=== PATIENT | male | born 1955 | race Caucasian/White ===

== ENCOUNTER 2018-11-27 23:39 | Observation (INO) | payer BC ==
[2018-11-28 00:47] LABS: BUN/Creatinine Ratio 21; Blood Urea Nitrogen 15 mg/dL (9-20); Calcium 9.7 mg/dL (8.4-10.2); Hemolysis Index 204
[2018-11-28 01:11] LABS: Hematocrit 44.3 % (35.5-45.6); Hemoglobin 14.9 gm/dl (11.8-15.2); Mean Corpuscular HGB Conc 34 % (32-34); Mean Corpuscular Volume 73 fl (84-94); Platelet Count 123 K/mm3 (140-440); Red Blood Count 6.08 M/mm3 (3.65-5.03)
[2018-11-28 01:19] LABS: INR 1.2 (0.87-1.13)
[2018-11-28 01:24] LABS: Red Cell Distribution Width 21.8 % (13.2-15.2)
--- NOTE | 2018-11-28 01:27 | Emergency Department Report ---
HPI - General Chief Complaint: Altered Mental Status Time Seen by Provider: 11/28/18 00:33 - HPI HPI: Room 18 The patient is a 63-year-old male presenting with a chief complaint of altered mental status. Family states they're visiting from out of town the patient was behaving his normal self until approximately 21:00 when he began mumbling and zoning out. states the patient has behaved in a similar fashion but worse in the past when his ammonia level was elevated. The patient did not take his lactulose earlier today but was able to take it after his symptoms began. states the patient had a smoothie to eat earlier today as well as a cough so. Patient is slow to respond but denies pain or shortness of breath. 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 - Surgical History Past Surgical History?: Yes Additional Surgical History: hand - Family History Family history: no significant - Social History Smoking Status: Former Smoker (remote) Substance Use Type: None (denies illicit drug use), Alcohol (no alcohol times one year) ED Review of Systems ROS: Stated complaint: SYMPTOMS OF TO AMONIA Other details as noted in HPI Comment: Unobtainable due to pts medical conditions Physical Exam - Physical Exam Vital Signs: Vital Signs 11/27/18 11/28/18 23:45 01:00 Temperature 98.6 F Pulse Rate 73 87 Respiratory 18 Rate Blood Pressure 127/70 140/80 O2 Sat by Pulse 97 97 Oximetry Physical Exam: GENERAL: The patient is well-developed well-nourished male lying on stretcher not appearing to be in acute distress. [] HEENT: Normocephalic. Atraumatic. Extraocular motions are intact. NECK: Supple. Trachea midline CHEST/LUNGS: Clear to auscultation. There is no respiratory distress noted. HEART/CARDIOVASCULAR: Regular. There is no tachycardia. There is no gallop rub or murmur. ABDOMEN: Abdomen is soft, nontender. Patient has normal bowel sounds. There is no abdominal distention. SKIN: There is no rash. There is no edema. There is no diaphoresis. NEURO: The patient is awake but slow to respond. Patient only says last name when asked his full name. Patient does not respond when he is asked if he knows where he is. The patient is not cooperative with cranial nerve exam. The patient appears to have difficulty raising his right arm and flexing his right lower extremity at the knee and hip when compared to the left. The patient has soft and occasionally mumbling speech MUSCULOSKELETAL: There is no evidence of acute injury. ED Course Vital Signs 11/27/18 11/28/18 23:45 01:00 Temperature 98.6 F Pulse Rate 73 87 Respiratory 18 Rate Blood Pressure 127/70 140/80 O2 Sat by Pulse 97 97 Oximetry - Consultations Consultation #1: 11/28/18 01:24 Code stroke called 11/28/18 02:00 Case discussed with tele-neurologist- recommends trial of Ativan 1 mg IV. Okay to administer aspirin and admitted to the hospital for further evaluation/EEG ED Medical Decision Making - Lab Data Result diagrams: 11/28/18 00:36 11/28/18 00:11 Laboratory Results - last 24 hr 11/28/18 11/28/18 11/28/18 00:09 00:11 00:36 WBC 10.4 RBC 6.08 H Hgb 14.9 Hct 44.3 MCV 73 L MCH 25 L MCHC 34 RDW 21.8 H Plt Count 123 L Lymph % (Auto) Construction Accountant [place] % (Auto) Construction Accountant Eos % (Auto) Construction Accountant Baso % (Auto) Construction Accountant Lymph # Construction Accountant [place] # Construction Accountant Eos # Construction Accountant Baso # Construction Accountant Seg Neutrophils % Construction Accountant Seg Neutrophils # Construction Accountant PT INR APTT Sodium 132 L Potassium 5.0 Chloride 95.7 L Carbon Dioxide 20 L Anion Gap 21 BUN 15 Creatinine 0.7 L Estimated GFR > 60 BUN/Creatinine Ratio 21 Glucose 119 H POC Glucose 107 H Calcium 9.7 Magnesium Ammonia Total Creatine Kinase CK-MB (CK-2) CK-MB (CK-2) Rel Index Troponin T TSH Free T4 Plasma/Serum Alcohol 11/28/18 11/28/18 11/28/18 00:41 00:41 00:43 WBC RBC Hgb Hct MCV MCH MCHC RDW Plt Count Lymph % (Auto) [place] % (Auto) Eos % (Auto) Baso % (Auto) Lymph # [place] # Eos # Baso # Seg Neutrophils % Seg Neutrophils # PT 14.9 INR 1.20 H APTT 32.0 Sodium Potassium Chloride Carbon Dioxide Anion Gap BUN Creatinine Estimated GFR BUN/Creatinine Ratio Glucose POC Glucose Calcium Magnesium 1.90 Ammonia Total Creatine Kinase 42 L CK-MB (CK-2) < 1.0 CK-MB (CK-2) Rel Index 2.3 Troponin T < 0.010 TSH Free T4 Plasma/Serum Alcohol < 0.01 11/28/18 11/28/18 00:43 00:43 WBC RBC Hgb Hct MCV MCH MCHC RDW Plt Count Lymph % (Auto) [place] % (Auto) Eos % (Auto) Baso % (Auto) Lymph # [place] # Eos # Baso # Seg Neutrophils % Seg Neutrophils # PT INR APTT Sodium Potassium Chloride Carbon Dioxide Anion Gap BUN Creatinine Estimated GFR BUN/Creatinine Ratio Glucose POC Glucose Calcium Magnesium Ammonia 60.0 Total Creatine Kinase CK-MB (CK-2) CK-MB (CK-2) Rel Index Troponin T TSH 4.460 H Free T4 1.54 H Plasma/Serum Alcohol - EKG Data -: EKG Interpreted by Ok EKG shows normal: sinus rhythm Rate: normal - EKG Data When compared to previous EKG there are: previous EKG unavailable Interpretation: nonspecific ST-T wave sanju (T-wave inversion in lead 3) - Radiology Data Radiology results: report reviewed (CT head), image reviewed (CT head) [place] [id number] Cat Scan Report Signed Patient: POOJA MAYO MR#: [id number] : 1955 Acct:[id number] Age/Sex: 63 / M ADM Date: 11/27/18 Loc: ED Attending Dr: Ordering Physician: CHE NUÑEZ MD Date of Service: 11/28/18 Procedure(s): CT head/brain wo con Accession Number(s): [id number] cc: CHE NUÑEZ MD CT HEAD WITHOUT CONTRAST INDICATION / CLINICAL INFORMATION: altered MENTAL STATUS since 21:00. TECHNIQUE: All CT scans at this location are performed using CT dose reduction for ALARA by means of automated exposure control. COMPARISON: None available. FINDINGS: HEMORRHAGE: None. EXTRA-AXIAL SPACES: Normal in size and morphology for the patient's age. VENTRICULAR SYSTEM: Normal in size and morphology for the patient's age. CEREBRAL PARENCHYMA: Focal 1 cm wedge-shaped hypodense infarct within the medial aspect of posterior right frontal lobe axial image 44 and coronal image 55. Mir and white matter interface is otherwise well preserved MIDLINE SHIFT OR HERNIATION: None. CEREBELLUM / BRAINSTEM: No significant abnormality. ORBITS: Normal as visualized. SOFT TISSUES of HEAD: No significant abnormality. CALVARIUM: No significant abnormality. PARANASAL SINUSES / MASTOID AIR CELLS: Mucosal thickening visualized portions of left maxillary sinus. Visualized paranasal sinuses and mastoid air cells are otherwise well-aerated. ADDITIONAL FINDINGS: None. IMPRESSION: 1. No intracranial bleed. 2. Small 1 cm cortical infarction within the medial aspect of right posterior frontal lobe Code stroke results discovered at 1:09 AM central time hours and called to nurse Lepe at 1:10 AM central time hours on 11/28/2018. A read back was performed. Signer Name: Anish Sloan MD Signed: 11/28/2018 2:11 AM Workstation Name: [id number] Transcribed By: TL Dictated By: Anish Sloan MD Electronically Authenticated By: Anish Sloan MD Signed Date/Time: 11/28/18210 DD/ 3 TD/TT: - Differential Diagnosis CVA, hepatic encephalopathy, electrolyte abnormality Critical care attestation.: If time is entered above; I have spent that time in minutes in the direct care of this critically ill patient, excluding procedure time. ED Disposition Clinical Impression: Altered mental status Disposition: DC-09 OP ADMIT IP TO THIS HOSP Is pt being admited?: Yes Does the pt Need Aspirin: Yes Condition: Fair Referrals: PRIMARY CARE, [Primary Care Provider] - 3-5 Days Time of Disposition: 02:22 (hospitalist notified (Dr. Jenna Srivastava))
[2018-11-28 01:29] LABS: Creatine Kinase MB < 1.0 ng/mL (0.0-4.0)
[2018-11-28 01:45] LABS: Free T4 (Free Thyroxine) 1.54 ng/dL (0.76-1.46)
[2018-11-28] MEDS ORDERED: ATIVAN IV ONE (01:59)
[2018-11-28] MEDS ORDERED: ASPIRIN PO ONE (01:59)
--- NOTE | 2018-11-28 02:15 | Cat Scan Report ---
CT HEAD WITHOUT CONTRAST INDICATION / CLINICAL INFORMATION: altered MENTAL STATUS since 21:00. TECHNIQUE: All CT scans at this location are performed using CT dose reduction for ALARA by means of automated e xposure control. COMPARISON: None available. FINDINGS: HEMORRHAGE: None. EXTRA-AXIAL SPACES: Normal in size and morphology for the patient's age. VENTRICULAR SYSTEM: Normal in size and morphology for the patient's age. CEREBRAL PARENCHYMA: Focal 1 cm wedge-shaped hypodense infarct within the medial aspect of posterior right frontal lobe axial image 44 and coronal image 55. Mir and white matter interface is otherwise well preserved MIDLINE SHIFT OR HERNIATION: None. CEREBELLUM / BRAINSTEM: No significant abnormality. ORBITS: Normal as visualized. SOFT TISSUES of HEAD: No significant abnormality. CALVARIUM: No significant abnormality. PARANASAL SINUSES / MASTOID AIR CELLS: Mucosal thickening visualized portions of left maxillary sinus . Visualized paranasal sinuses and mastoid air cells are otherwise well-aerated. ADDITIONAL FINDINGS: None. IMPRESSION: 1. No intracranial bleed. 2. Small 1 cm cortical infarction within the medial aspect of right posterior frontal lobe Code stroke results discovered at 1:09 AM central time hours and called to nurse Lepe at 1:10 AM [facility] time hours on 11/28/2018. A read back was performed. Signer Name: Anish Sloan MD Signed: 11/28/2018 2:11 AM Workstation Name: [email or web address]
--- NOTE | 2018-11-28 02:24 | Emergency Department Report ---
HPI - General Chief Complaint: Altered Mental Status Time Seen by Provider: 11/28/18 00:33 - [facility] HPI: [employer] [facility] Date of Service: 11/28/2018 01:27:00 History of Present Illness: Patient is a 63 years old Male. Patient was brought by private transportation with symptoms of AMS Patient with hx of liver cirrhosis on transplant waiting list, followed by [facility], presents tonight with acute onset of confusion and inattentiveness. states he was staring off during dinner and not talking much. He responds to questions, nods his head yes and no, but provides no hx. During exam he would look off to his R with head version and turn back around. He had slight head movement noted by and she states this is all new. He has no hx of seizures or strokes. states he is weak in both arms at baseline and ROM is limited. He has no gaze deviation, no facial droop, and is spontaneously moving all extremities. 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 - Surgical History Past Surgical History?: Yes Additional Surgical History: hand - Social History Smoking Status: Former Smoker (remote) Substance Use Type: None (denies illicit drug use), Alcohol (no alcohol times one year) ED Review of Systems ROS: Stated complaint: SYMPTOMS OF TO AMONIA Other details as noted in HPI Physical Exam - Physical Exam Vital Signs: Vital Signs 11/27/18 11/28/18 11/28/18 23:45 01:00 01:10 Temperature 98.6 F Pulse Rate 73 87 90 Respiratory 18 20 Rate Blood Pressure 127/70 140/80 140/80 O2 Sat by Pulse 97 97 97 Oximetry 11/28/18 11/28/18 11/28/18 01:20 01:46 01:50 Temperature Pulse Rate 94 H 98 H Respiratory 19 16 20 Rate Blood Pressure 160/85 151/83 O2 Sat by Pulse 96 96 96 Oximetry 11/28/18 02:10 Temperature Pulse Rate 102 H Respiratory 20 Rate Blood Pressure 143/77 O2 Sat by Pulse 98 Oximetry General: Examination: 1A: Level of Consciousness - Alert; keenly responsive + 0 1B: Ask Month and Age - Could Not Answer Either Question Correctly + 2 1C: Blink Eyes & Squeeze Hands - Performs Both Tasks + 0 2: Test Horizontal Extraocular Movements - Normal + 0 3: Test Visual Atkins - No Visual Loss + 0 4: Test Facial Palsy (Use Grimace if Obtunded) - Normal symmetry + 0 5A: Test Left Arm Motor Drift - No Drift for 10 Seconds + 0 5B: Test Right Arm Motor Drift - No Drift for 10 Seconds + 0 6A: Test Left Leg Motor Drift - Drift, but doesn't hit bed + 1 6B: Test Right Leg Motor Drift - Drift, but doesn't hit bed + 1 7: Test Limb Ataxia (FNF/Heel-Hernandez) - No Ataxia + 0 8: Test Sensation - Normal; No sensory loss + 0 9: Test Language/Aphasia - Normal; No aphasia + 0 10: Test Dysarthria - Mute/Anarthric + 2 11: Test Extinction/Inattention - Visual/tactile/auditory/spatial/personal inattention + 1 NIHSS Score: 7 CT head showed no acute hemorrhage or acute core infarct. CT head was reviewed. ED Course Vital Signs 11/27/18 11/28/18 11/28/18 23:45 01:00 01:10 Temperature 98.6 F Pulse Rate 73 87 90 Respiratory 18 20 Rate Blood Pressure 127/70 140/80 140/80 O2 Sat by Pulse 97 97 97 Oximetry 11/28/18 11/28/18 11/28/18 01:20 01:46 01:50 Temperature Pulse Rate 94 H 98 H Respiratory 19 16 20 Rate Blood Pressure 160/85 151/83 O2 Sat by Pulse 96 96 96 Oximetry 11/28/18 02:10 Temperature Pulse Rate 102 H Respiratory 20 Rate Blood Pressure 143/77 O2 Sat by Pulse 98 Oximetry ED Medical Decision Making - Lab Data Result diagrams: 11/28/18 00:36 11/28/18 00:11 - Medical Decision Making Impression: AMS, toxic metabolic encephalopathy Comments: Not iv tpa candidate as exam is non localizing and sxs onset greater than 4.5hrs Not IR candidate as exam is non localizing and clinical presentation no correlating with LVO. Metrics: Last Known Well: 11/27/2018 19:00:00 [employer] Notification Time: 11/28/2018 01:25:49 Arrival Time: 11/27/2018 23:39:00 Stamp Time: 11/28/2018 01:27:00 Time First Login Attempt: 11/28/2018 01:32:00 Video Start Time: 11/28/2018 01:32:00 Symptoms: AMS NIHSS Start Assessment Time: 11/28/2018 01:45:00 Patient is not a candidate for tPA. Patient was not deemed candidate for tPA thrombolytics because of Last Well Known Above 4.5 Hours. Video End Time: 11/28/2018 01:52:00 CT head showed no acute hemorrhage or acute core infarct. CT head was reviewed. ER physician notified of the decision on thrombolytics management. Our recommendations are outlined below. Recommendations: Antiplatelet Therapy Recommended recommended to ED to give trial with low dose ativan to see if mentation improved Will need EEG and MRI brain Ammonia level 60. place on telemetry Therapies: Physical Therapy, Occupational Therapy, Speech Therapy Assessment When Applicable Dysphaghia Screen: Swallow Evaluation, Bedside DVT prophylaxis: Choice of Primary Team Disposition: Follow up with Teleneurology Follow upPatient was informed the Neurology Consult would happen via TeleHealth consult by way of interactive audio and vide o telecommunications and consented to receiving care in this manner. Due to the immediate potential for life-threatening deterioration due to underlying acute neurologic illness, I spent 35 minutes providing critical care. This time includes time for face to face visit via telemedicine, review of m edical records, imaging studies and discussion of findings with providers, the patient and/or family. Dr Kellie Sneed [employer] Critical care attestation.: If time is entered above; I have spent that time in minutes in the direct care of this critically ill patient, excluding procedure time. ED Disposition Clinical Impression: Encephalopathy Disposition: DC-09 OP ADMIT IP TO THIS HOSP Is pt being admited?: Yes Does the pt Need Aspirin: Yes Condition: Stable Referrals: PRIMARY CARE, [Primary Care Provider] - 3-5 Days
[2018-11-28] MEDS ORDERED: ZOFRAN IV PRN (03:04)
[2018-11-28] MEDS ORDERED: SODIUM CHLORIDE FLUSH SYRINGE 10 ML IV PRN ×2 (03:04→03:09)
[2018-11-28] MEDS ORDERED: TYLENOL PO PRN (03:04)
[2018-11-28 03:29] LABS: Basophils # (Auto) 0.1 K/mm3 (0.0-0.1); Basophils % (Auto) 0.7 % (0.0-1.8); Eosinophils # (Auto) 0.2 K/mm3 (0.0-0.4); Eosinophils % (Auto) 1.9 % (0.0-4.3); Hematocrit 40.8 % (35.5-45.6); Hemoglobin 13.4 gm/dl (11.8-15.2); Lymphocytes # (Auto) 0.7 K/mm3 (1.2-5.4); Lymphocytes % (Auto) 8.1 % (13.4-35.0); Mean Corpuscular HGB Conc 33 % (32-34); Mean Corpuscular Volume 74 fl (84-94); Monocytes # (Auto) 0.8 K/mm3 (0.0-0.8); Monocytes % (Auto) 9.7 % (0.0-7.3); Red Blood Count 5.54 M/mm3 (3.65-5.03)
[2018-11-28 03:37] LABS: Platelet Count 96 K/mm3 (140-440); Red Cell Distribution Width 21.9 % (13.2-15.2)
[2018-11-28 04:16] LABS: BUN/Creatinine Ratio 23; Blood Urea Nitrogen 16 mg/dL (9-20); Calcium 9.2 mg/dL (8.4-10.2); Hemolysis Index 9
--- NOTE | 2018-11-28 05:18 | History and Physical Report ---
History of Present Illness Date of examination: 11/28/18 Date of admission: 11/28/18 03:04 History of present illness: 63-year-old man with a history of cirrhosis, diabetes was brought to the em ergency room because family found him to have mumbling speech confused. They stated that he usually gets like this and his ammonia is high. Did not take his lactulose yesterday, who system is unobtainable PAST MEDICAL HISTORY:cirrhosis, diabetes PAST SURGICAL HISTORY: Hand FAMILY HISTORY:hypertension, diabetes SOCIAL HISTORY: Denies tobacco, drugs, quit alcohol 1 year ago Medications and Allergies Allergies Allergy/AdvReac Type Severity Reaction Status Date / Time No Known Allergies Allergy Unverified 11/27/18 23:53 Home Medications Medication Instructions Recorded Confirmed Last Taken Type Bumetanide [Bumex 1 mg tab] 1 mg PO DAILY 11/28/18 11/28/18 Unknown History Ergocalciferol [Vitamin D2] 1 cap PO QWEEK 11/28/18 11/28/18 Unknown History Ferrous Sulfate [Feosol 325 MG tab] 325 mg PO BID 11/28/18 11/28/18 Unknown History Insulin Aspart [NovoLOG 100 0 unit SQ AC 11/28/18 11/28/18 Unknown History UNITS/ML VIAL] Lactulose [Cephulac] 20 gm PO TID 11/28/18 11/28/18 Unknown History Spironolactone [Aldactone] 100 mg PO TID 11/28/18 11/28/18 Unknown History Active Meds: Active Medications Acetaminophen (Tylenol) 650 mg PO Q4H PRN PRN Reason: Pain MILD(1-3)/Fever >100.5/MADDEN Aspirin (Aspirin) 325 mg PO QDAY JEAN Ondansetron HCl (Zofran) 4 mg IV Q8H PRN PRN Reason: Nausea And Vomiting Sodium Chloride (Sodium Chloride Flush Syringe 10 Ml) 10 ml IV BID JEAN Sodium Chloride (Sodium Chloride Flush Syringe 10 Ml) 10 ml IV PRN PRN PRN Reason: LINE FLUSH Sodium Chloride (Sodium Chloride Flush Syringe 10 Ml) 10 ml IV PRN PRN PRN Reason: LINE FLUSH Exam - Physical Exam Narrative exam: General Apperance: The patient sitting in bed no acute distress HEENT: Normocephalic, atraumatic. Pupils equally round and reactive to light, extraocular movement intact, and no sclericterus or JVD or thyromegaly or nodule. Neck supple, no carotid bruit, mucous membranes moist, no exudate or erythema Heart: S1-S2, regular is rhythm Lungs: Clear to auscultation bilaterally, breathing comfortable Abdomen: Positive bowel sounds, soft, nontender, nondistended, no organomegaly Extremities: No edema cyanosis clubbing Skin: no rash, nodule, warm and dry Neuro:CN 2 -12 intact, motor poor effort, family state he always has problems raising his arms/sensory appears intact, speech is slow, muffled - Constitutional Vitals: Temp Pulse Resp BP Pulse Ox 98.6 F 87 15 132/79 96 11/27/18 23:45 11/28/18 04:00 11/28/18 04:00 11/28/18 04:00 11/28/18 04:00 Results - Labs CBC & Chem 7: 11/28/18 03:16 11/28/18 03:16 Labs: Abnormal lab results 11/28/18 11/28/18 11/28/18 Range/Units 00:09 00:11 00:36 RBC 6.08 H (3.65-5.03) M/mm3 MCV 73 L (84-94) fl MCH 25 L (28-32) pg RDW 21.8 H (13.2-15.2) % Plt Count 123 L (140-440) K/mm3 Lymph % (Auto) (13.4-35.0) % [place] % (Auto) (0.0-7.3) % Lymph # (1.2-5.4) K/mm3 Seg Neutrophils % (40.0-70.0) % INR (0.87-1.13) Sodium 132 L (137-145) mmol/L Chloride 95.7 L (98-107) mmol/L Carbon Dioxide 20 L (22-30) mmol/L Creatinine 0.7 L (0.8-1.5) mg/dL Glucose 119 H (75-100) mg/dL POC Glucose 107 H (70-105) Total Creatine Kinase (55-170) units/L TSH (0.270-4.200) mlU/mL Free T4 (0.76-1.46) ng/dL 11/28/18 11/28/18 11/28/18 Range/Units 00:41 00:43 00:43 RBC (3.65-5.03) M/mm3 MCV (84-94) fl MCH (28-32) pg RDW (13.2-15.2) % Plt Count (140-440) K/mm3 Lymph % (Auto) (13.4-35.0) % [place] % (Auto) (0.0-7.3) % Lymph # (1.2-5.4) K/mm3 Seg Neutrophils % (40.0-70.0) % INR 1.20 H (0.87-1.13) Sodium (137-145) mmol/L Chloride (98-107) mmol/L Carbon Dioxide (22-30) mmol/L Creatinine (0.8-1.5) mg/dL Glucose (75-100) mg/dL POC Glucose (70-105) Total Creatine Kinase 42 L (55-170) units/L TSH 4.460 H (0.270-4.200) mlU/mL Free T4 1.54 H (0.76-1.46) ng/dL 11/28/18 11/28/18 11/28/18 Range/Units 02:28 03:16 03:16 RBC 5.54 H (3.65-5.03) M/mm3 MCV 74 L (84-94) fl MCH 24 L (28-32) pg RDW 21.9 H (13.2-15.2) % Plt Count 96 L (140-440) K/mm3 Lymph % (Auto) 8.1 L (13.4-35.0) % [place] % (Auto) 9.7 H (0.0-7.3) % Lymph # 0.7 L (1.2-5.4) K/mm3 Seg Neutrophils % 79.6 H (40.0-70.0) % INR (0.87-1.13) Sodium 130 L (137-145) mmol/L Chloride 94.5 L (98-107) mmol/L Carbon Dioxide 20 L (22-30) mmol/L Creatinine 0.7 L (0.8-1.5) mg/dL Glucose 168 H (75-100) mg/dL POC Glucose 173 H (70-105) Total Creatine Kinase (55-170) units/L TSH (0.270-4.200) mlU/mL Free T4 (0.76-1.46) ng/dL - Imaging and Cardiology EKG: image reviewed CT Scan - head: report reviewed Assessment and Plan Assessment Acute CVA Diabetes History of cirrhosis Lymphocytopenia Plan Admit to medicine Obtain MRI of the head, and neck, echo Start aspirin, statin IV hydralazine as needed for blood pressure control [employer] neurology, physical and occupational therapy DVT prophylaxis
[2018-11-28] MEDS ORDERED: D50W (25GM) Syringe IV PRN (05:20)
[2018-11-28] MEDS ORDERED: SODIUM CHLORIDE FLUSH SYRINGE 10 ML IV SCH (10:00)
[2018-11-28] MEDS ORDERED: ASPIRIN PO SCH (10:00)
[2018-11-28] MEDS ORDERED: CEPHULAC PR SCH (10:00)
[2018-11-28] MEDS ORDERED: FEOSOL PO SCH (11:00)
--- NOTE | 2018-11-28 11:16 | Magnetic Resonance Report ---
MRI BRAIN 11/28/2018 INDICATION / CLINICAL INFORMATION: Altered mental status. Speech disturbance.. TECHNIQUE: Multiplanar, multisequence MR images of the brain were obtained. COMPARISON: CT brain 11/28/2018 FINDINGS: BRAIN / INTRACRANIAL CONTENTS: Unenhanced MR images of the brain demonstrate no evidence of acute abn ormality. Ventricles and sulci are normal in size and shape for a patient of this age. There is no evidence of acute ischemic injury, hemorrhage, or mass. A small focal area of cortical en cephalomalacia is present along the medial aspect of the right frontal lobe, corresponding to the chr onic ischemic change noted on the earlier CT scan. There is a small amount of magnetic susceptibility changes at this location, consistent with hemosiderin deposition, presumably from remote post infarc t or ischemic hemorrhage. There is no evidence of acute hemorrhage. There are no abnormal extra-axial fluid collections. EXTRACRANIAL: Incidental note is made of mucosal thickening and opacification of the left maxillary s inus. Paranasal sinuses are otherwise clear. CRANIOCERVICAL JUNCTION: No significant abnormality. VASCULAR FLOW-VOIDS: No significant abnormality. IMPRESSION: No acute abnormality. Signer Name: Tavares Ovalle MD Signed: 11/28/2018 11:11 AM Workstation Name: [email or web address]
--- NOTE | 2018-11-28 11:17 | Magnetic Resonance Report ---
MRA HEAD 11/28/2018 INDICATION / CLINICAL INFORMATION: Altered mental status. Speech disturbance.. TECHNIQUE: Routine MRA of the head is performed. 3-D/MIP reformats postprocessed. COMPARISON: None available. FINDINGS: MRA HEAD: Intracranial internal carotid arteries: No significant abnormality. Anterior cerebral arteries: No significant abnormality. Middle cerebral arteries: No significant abnormality. Intracranial vertebral arteries: No significant abnormality. Basilar artery: No significant abnormality. Posterior cerebral arteries: No significant abnormality. IMPRESSION: Negative exam. Signer Name: Tavares Ovalle MD Signed: 11/28/2018 11:13 AM Workstation Name: [id number]
[2018-11-28] MEDS ORDERED: BUMEX PO SCH (12:00)
[2018-11-28] MEDS: CEPHULAC PO SCH ×2 (13:33→14:19)
[2018-11-28] MEDS ORDERED: ALDACTONE PO SCH (14:00)
[2018-11-28] MEDS ORDERED: NON-FORMULARY (Spironolactone [Aldactone] 100 MG) PO SCH (14:00)
[2018-11-28 17:27] VITALS: BP 134/77
--- NOTE | 2018-11-28 17:39 | Consultation ---
History of Present Illness Consult date: 11/28/18 Medications and Allergies Allergies Allergy/AdvReac Type Severity Reaction Status Date / Time No Known Allergies Allergy Unverified 11/27/18 23:53 Home Medications Medication Instructions Recorded Confirmed Last Taken Type Bumetanide [Bumex 1 mg tab] 1 mg PO DAILY 11/28/18 11/28/18 Unknown History Ergocalciferol [Vitamin D2] 1 cap PO QWEEK 11/28/18 11/28/18 Unknown History Ferrous Sulfate [Feosol 325 MG tab] 325 mg PO BID 11/28/18 11/28/18 Unknown History Insulin Aspart [NovoLOG 100 0 unit SQ AC 11/28/18 11/28/18 Unknown History UNITS/ML VIAL] Lactulose [Cephulac] 20 gm PO TID 11/28/18 11/28/18 Unknown History Spironolactone [Aldactone] 100 mg PO TID 11/28/18 11/28/18 Unknown History Active Meds: Active Medications Acetaminophen (Tylenol) 650 mg PO Q4H PRN PRN Reason: Pain MILD(1-3)/Fever >100.5/MADDEN Aspirin (Aspirin) 325 mg PO QDAY [facility] Last Admin: 11/28/18 13:32 Dose: 325 mg Documented by: Bumetanide (Bumex) 1 mg PO DAILY [facility] Dextrose (D50w (25gm) Syringe) 50 ml IV PRN PRN PRN Reason: Hypoglycemia Ergocalciferol (Vitamin D2) 50,000 unit PO Mo [facility] Ferrous Sulfate (Feosol) 325 mg PO BID [facility] Last Admin: 11/28/18 13:33 Dose: 325 mg Documented by: Lactulose (Cephulac) 20 gm PO TID [facility] Last Admin: 11/28/18 14:19 Dose: Not Given Documented by: Ondansetron HCl (Zofran) 4 mg IV Q8H PRN PRN Reason: Nausea And Vomiting Pravastatin Sodium (Pravachol) 20 mg PO QHS [facility] Sodium Chloride (Sodium Chloride Flush Syringe 10 Ml) 10 ml IV BID [facility] Sodium Chloride (Sodium Chloride Flush Syringe 10 Ml) 10 ml IV PRN PRN PRN Reason: LINE FLUSH Spironolactone (Aldactone) 100 mg PO TID [facility] Last Admin: 11/28/18 13:33 Dose: 100 mg Documented by: Physical Examination - Vital Signs Vital Signs: Vital Signs Temp Pulse BP Pulse Ox 98.6 F 73 127/70 97 11/27/18 23:45 11/27/18 23:45 11/27/18 23:45 11/27/18 23:45 Results - Laboratory Findings CBC and BMP: 11/28/18 03:16 11/28/18 03:16 Abnormal Lab Findings: Abnormal Labs 11/28/18 11/28/18 11/28/18 00:09 00:11 00:36 RBC 6.08 H MCV 73 L MCH 25 L RDW 21.8 H Plt Count 123 L Lymph % (Auto) [place] % (Auto) Lymph # Seg Neutrophils % INR Sodium 132 L Chloride 95.7 L Carbon Dioxide 20 L Creatinine 0.7 L Glucose 119 H POC Glucose 107 H Total Creatine Kinase TSH Free T4 11/28/18 11/28/18 11/28/18 00:41 00:43 00:43 RBC MCV MCH RDW Plt Count Lymph % (Auto) [place] % (Auto) Lymph # Seg Neutrophils % INR 1.20 H Sodium Chloride Carbon Dioxide Creatinine Glucose POC Glucose Total Creatine Kinase 42 L TSH 4.460 H Free T4 1.54 H 11/28/18 11/28/18 11/28/18 02:28 03:16 03:16 RBC 5.54 H MCV 74 L MCH 24 L RDW 21.9 H Plt Count 96 L Lymph % (Auto) 8.1 L [place] % (Auto) 9.7 H Lymph # 0.7 L Seg Neutrophils % 79.6 H INR Sodium 130 L Chloride 94.5 L Carbon Dioxide 20 L Creatinine 0.7 L Glucose 168 H POC Glucose 173 H Total Creatine Kinase TSH Free T4 11/28/18 11/28/18 13:52 17:21 RBC MCV MCH RDW Plt Count Lymph % (Auto) [place] % (Auto) Lymph # Seg Neutrophils % INR Sodium Chloride Carbon Dioxide Creatinine Glucose POC Glucose 270 H 298 H Total Creatine Kinase TSH Free T4 Assessment and Plan 56 YR OLSD MALE WITH HIST OF CHRONIC ALCOHOLISM WHO DEVELOPED CIRRHOSIS OF LIVER AND QUIT DRINKING ABOUT ONE YR AGO DEVELOPED AN EPISODE OF ALTERED MENTAL STATUS IN LATE NIGHT OF 11/27/2018. PATIENT CAME FROM [place] TO ATTEND CEREMONY OF HIS GRAND SON AT [facility] WHENWIFE NOTICE THAT HE WAS CONFUSED AND HE DID NOT RECOGNIZE HER NAD WAS NOT SPEAKING WHICH MAKES SENSE. SHE BROUGHT HIM TO THE ER. REPORTS PATIENT TAKES LACTULOSE EVERY DAY AND IF HE MISSES LACTULOSE AT TIMES AMMONIA LEVEL GOES UP AND HE BECOMES CONFUSED, AND WHEN AMMONIA LEVEL GETS CORRECTED HE BECOMES NORMAL. IN THE MORNING OF 11/27/2018 HE DIDNOT TAKE HIS LACTULOSE. AFTER ADMISSION LAB SHOWED HIS AMMONIA TO BE 60.,HE ALSO HAD ELEVATED T4,TSH. PHYSICAL EXAMINATION. PATIENT IS ALERT AND AWAKE, ANSWERS QUESTIONS APPROPRIATELY.KNOWS THE MONTH,YEAR,AND IS AWARE OF HIS SOCILA DYNAMICS AND FAMILY DYNAMICS.PATIENT'S [place] FE REPORTED THAT HE HAS COME BACK TO HIS NORMAL STATE.PRESENT HAS NORMAL JUDGEMENT.DETAILED MENTAL STATUS EXAMINATION WAS NOT DONE PATIENT WAS REPORTED TO BE NORMAL BY HIS . HEART-NORMAL RATE AND RYTHM CAROTIDS-BOTH PALPABLE. CRANIAL NERVES. ALL WITH IN NORMAL LIMIT. MOTOR-NORMAL STRENGTH IN ALL FOUR EXTREMITIES CORDINATION-WITH IN NORMAL LIMIT REFLEXES. NO ASYMMETRY OF REFLEXES WERE NOTED. SENSORY- GROSSLY WITH IN NORMAL LIMIT. GAIT - NORMAL GAIT IMPRESSION.: 1. ALTERED MENTAL STATUS DUE ELEVATED SERUM AMMONIA FROM NOT TAKING LACTULOSE RRECOMMEND. 1. TAKE LACTULOSE REGULARLY,AVOID FOOD RICH IN FAT AND CHOLESTEROL 2. PLEASE GET APPOINTMENT WITH AN TIMBER MANAGEMENT PROFESSOR FFFFFFFFFOR ELEVATED T4,AND ELEVATED TSH
[2018-11-28] MEDS ORDERED: PRAVACHOL PO SCH (22:00)
--- NOTE | 2018-11-29 07:23 | Discharge Summary ---
Providers - Providers Date of Admission: 11/28/18 03:04 Date of discharge: 11/28/18 Attending physician: ABDOULAYE KAY 11/28/18 Consult to Physician [CONS] Routine Comment: Consulting Provider: INDRA SAHNI Physician Instructions: Reason For Exam: ams - possible seizure 11/28/18 03:10 Occupational Therapy Evaluate and Treat [CONS] Routine Comment: Reason For Exam: Neuro deficits Physical Therapy Evaluation and Treat [CONS] Routine Comment: Reason For Exam: Neuro deficits Primary care physician: BUSINESS COORDINATOR Hospitalization Condition: Fair Disposition: DC-30 STILL A PATIENT Exam - Constitutional Vitals: Temp Pulse Resp BP Pulse Ox 98.1 F 68 18 134/77 97 11/28/18 16:23 11/28/18 16:23 11/28/18 16:23 11/28/18 16:23 11/28/18 16:30 Plan Follow up with: PRIMARY CAREMD [Primary Care Provider] - 3-5 Days
[2018-12-01] MEDS ORDERED: VITAMIN D2 PO SCH (10:00)
== END 2018-11-28 18:30 | disposition home or self-care (01) ==
LOC: EDSEX → ED 23:39 → 4A 11-28 03:04 → INTOOBSV 11-28 03:04 → UNDODISIN 11-28 18:30
PROVIDERS: ADMIT Internal Medicine; ATTEND Internal Medicine
DX: I63.9 Cerebral infarction, unspecified (principal); E11.9 Type 2 diabetes mellitus without complications; D72.810 Lymphocytopenia; K74.60 Unspecified cirrhosis of liver; R41.82 Altered mental status, unspecified; I10 Essential (primary) hypertension; Z87.891 Personal history of nicotine dependence
CPT/HCPCS: 36415; 70450; 70544; 70551; 80048; 82140; 82550; 82553; 82962; 83735; 84439; 84443; 84484; 85025; 85610; 85730; 93005; 93010; 93306; 95819; 96374; 97162; 99284; G0378; J2060; 80320; G0480